=== PATIENT | male | born 1995 | race Caucasian/White ===

== ENCOUNTER 2023-04-23 18:03 | Inpatient (IN) | payer SELFPAY ==
--- OUTSIDE RECORDS SUMMARY | 2023-04-23 18:06 | XMS REPORT | Continuity of Care Document ---
:1995 Author Organization [facility] t Address [address] [place] [address] [place] [id number] Care Team Providers Name Role Phone PCP, PATIENT DOES NOT HAVE A Primary Care Physician Unavaila ble Lab, Adc Fam Pob I Attending Clinician Unavailable Lakeshia Briscoe Attending Clinician LAKESHIA MONSIVAIS Attending Clinician Unavailable Milly Mayes Attending Clinician Tesfaye Brar Attending Clinician TESFAYE VALENCIA Attending Clinician Unavailable Rocio Haley RN Attending Clinician Unavailable UNKNOWN, ATTENDING Attending Clinician Unavailable Payers Payer Name Policy Type Policy Number Effective Date Expiration Date S isela [facility] - [id number] 2020 00:00:00 OUT OF STATE Problems This patient has no known problems. Allergies, Adverse Reactions, Alerts Allergy Allergy Status Severity Reaction(s) Onset Inactive Treating Comm ents Source Name Type Date Date Clinician NO KNOWN Drug Active Univers ALLERGIE Class ity of [facility] Social History Social Habit Start Date Stop Date Quantity Comments Source Exposure to Yes [facility] SARS-CoV-2 (event) Medica l Branch Sex Assigned At [birth year] [facility] 00:00:00 00:00:00 [facility] Smoking Status Start Date Stop Date Source Unknown if ever smoked [facility] Medications This patient has no known medications. Procedures This patient has no known procedures. Encounters Start End Encounter Admission Attending Care Care Encounter Source Date/Time Date/Time Type Type Clinicians Facility Department ID 2021-04-08 2021-04-08 Laboratory Lab, Adc Fam Pob I [facility] 1.2. [id number] Univers 13:05:55 13:25:55 Only Lakeshia Monsivais [id number] ity of [place] [id number] Jack as Professio [id number] [address] One 2021-04-08 2021-04-08 Outpatient R LOI [facility] [id number] Univers 13:00:00 13:00:00 LAKESHIA banuelosy o f [facility] 2020-12-04 2020-12-04 Laboratory Lab, [facility] 1[facility]. [id number] Univers 10:42:43 11:02:43 Only Milly Matt [id number] ity of [place] [id number] Jack as Professio [id number] [address] One 2020-12-04 2020-12-04 Outpatient R [facility] [id number] Univers 10:40:00 10:40:00 ity [facility] 2020-08-23 2020-08-23 Laboratory Lab, [facility] Fam [facility] 1.2. [id number] Univers 14:23:59 14:43:59 Only Tesfaye Valencia [facility] [id number] ity of [place] [id number] Jack as Professio [phone] [address] Office [facility] One 2020-08-23 2020-08-23 [facility] [id number] Univers 14:20:00 14:20:00 TESFAYE banuelosy o f [facility] 2020-07-15 2020-07-15 Letter Rocio Haley [id number] Univers 00:00:00 00:00:00 (Out) STACI [id number] it y of [facility] [id number] Jakc as [id number] [address] 2020-07-13 2020-07-13 Outpatient R [facility], [facility] [id number] Univers 11:45:00 11:45:00 ATTENDING ity of [facility] Branch 2020-07-13 2020-07-13 Outpatient R UNKNOWN, [facility] [id number] Univers 11:30:00 11:30:00 ATTENDING y [facility] Results This patient has no known results.
[2023-04-23] MEDS ORDERED: MORPHINE 4 MG/ML SYR ONE (18:39)
[2023-04-23 18:40] LABS: Absolute Lymphocytes (CBC) 1.1 K/uL (0.7-4.9); Lymphocytes % 9.4 % (15.3-44.8); MPV 8.2 fL (7.6-11.3); Platelets 274 thou/uL (152-406); RBC Red Blood Cell Count 4.73 M/uL (4.33-5.43)
[2023-04-23] MEDS ORDERED: ONDANSETRON 4 MG/2 ML VIAL ONE (18:40)
[2023-04-23] MEDS ORDERED: NA CHLORIDE 0.9% 2,000 ML ONE (18:40)
[2023-04-23] MEDS ORDERED: FAMOTIDINE 20 MG/2 ML VIAL IV ONE (18:40)
[2023-04-23] MEDS ORDERED: METRONIDAZOLE 500mg IVPB 500 MG/100 ML BAG IV ONE (18:41)
[2023-04-23] MEDS ORDERED: CIPROFLOXACIN 400mg IV 400 MG/200 ML BAG IV ONE (18:41)
[2023-04-23 19:00] LABS: Albumin 3.3 g/dL (3.4-5.0); Bilirubin Total 0.8 mg/dL (0.2-1.0); Protein, Total 7.3 g/dL (6.4-8.2)
--- NOTE | 2023-04-23 19:22 | RAD REPORT ---
EXAM DESCRIPTION: CT - Abdomen Pelvis Wo Contrast - 04/23/2023 7:11 pm CLINICAL HISTORY: Abdominal pain COMPARISON: None TECHNIQUE: Computed axial tomography of the abdomen and pelvis was obtained. IV and oral contrast we re not requested. All CT scans are performed using dose optimization technique as appropriate and may include automated exposure control or mA/KV adjustment according to patient size. FINDINGS: The evaluation of solid organs, vessels and bowel is limited secondary to the lack of con trast administration. The liver, spleen, pancreas, adrenals and kidneys appear grossly normal. No evidence diverticulitis. The appendix is retrocecal. It is borderline enlarged. The appendix extends superiorly from the cecum abutting the inferior aspect of the right lobe of the liver. Significant periappendiceal stranding i s not noted. No abscess. No free air IMPRESSION: Borderline enlargement of the appendix is equivocal for an early appendicitis
--- NOTE | 2023-04-23 19:36 | EDPHYS ---
Physician Documentation [facility] Name: Alex Ta II Age: 27 yrs Sex: Male : 1995 Arrival Date: 04/23/2023 Time: 18:03 Bed 6 Private MD: ED Physician Grzegorz Gonzalez HPI: 04/23 19:30 This 27 yrs old Male presents to ER via Ambulatory with complaints of leonor Abdominal Pain, Nausea, Diarrhea. 19:30 The patient presents to the emergency department with nausea, diarrhea, abdominal pain, leonor of the left lower quadrant. Onset: The symptoms/episode began/occurred 3 day(s) ago. Possible causes: unknown. The symptoms are aggravated by nothing. The symptoms are alleviated by nothing. Associated signs and symptoms: The patient has no apparent associated signs or symptoms. Severity of symptoms: At their worst the symptoms were mild moderate in the emergency department the symptoms are unchanged. The patient has not experienced similar symptoms in the past. Historical: - Allergies: 18:18 No Known Allergies; hb - Home Meds: 18:18 Ambien Oral [Active]; hb - PMHx: 18:18 None; hb - PSHx: 18:18 None; hb - Immunization history:: Adult Immunizations up to date. - Social history:: Smoking status: Patient denies any tobacco usage or history of. ROS: 19:31 Constitutional: Negative for fever, chills, and weight loss, Eyes: Negative for injury, leonor pain, redness, and discharge, ENT: Negative for injury, pain, and discharge, Neck: Negative for injury, pain, and swelling, Cardiovascular: Negative for chest pain, palpitations, and edema, Respiratory: Negative for shortness of breath, cough, wheezing, and pleuritic chest pain, Back: Negative for injury and pain, : Negative for injury, bleeding, discharge, and swelling, MS/Extremity: Negative for injury and deformity, Skin: Negative for injury, rash, and discoloration, Neuro: Negative for headache, weakness, numbness, tingling, and seizure, Psych: Negative for depression, anxiety, suicide ideation, homicidal ideation, and hallucinations, Allergy/Immunology: Negative for hives, rash, and allergies, Endocrine: Negative for neck swelling, polydipsia, polyuria, polyphagia, and marked weight changes, Hematologic/Lymphatic: Negative for swollen nodes, abnormal bleeding, and unusual bruising. 19:31 Abdomen/GI: Positive for abdominal pain, nausea, diarrhea, of the left lower quadrant. Exam: 19:31 Constitutional: This is a well developed, well nourished patient who is awake, alert, leonor and in no acute distress. Head/Face: Normocephalic, atraumatic. Eyes: Pupils equal round and reactive to light, extra-ocular motions intact. Lids and lashes normal. Conjunctiva and sclera are non-icteric and not injected. Cornea within normal limits. Periorbital areas with no swelling, redness, or edema. ENT: Nares patent. No nasal discharge, no septal abnormalities noted. Tympanic membranes are normal and external auditory canals are clear. Oropharynx with no redness, swelling, or masses, exudates, or evidence of obstruction, uvula midline. Mucous membranes moist. Neck: Trachea midline, no thyromegaly or masses palpated, and no cervical lymphadenopathy. Supple, full range of motion without nuchal rigidity, or vertebral point tenderness. No Meningismus. Chest/axilla: Normal chest wall appearance and motion. Nontender with no deformity. No lesions are appreciated. Cardiovascular: Regular rate and rhythm with a normal S1 and S2. No gallops, murmurs, or rubs. Normal PMI, no JVD. No pulse deficits. Respiratory: Lungs have equal breath sounds bilaterally, clear to auscultation and percussion. No rales, rhonchi or wheezes noted. No increased work of breathing, no retractions or nasal flaring. Back: No spinal tenderness. No costovertebral tenderness. Full range of motion. Male : Normal genitalia with no discharge or lesions. Skin: Warm, dry with normal turgor. Normal color with no rashes, no lesions, and no evidence of cellulitis. MS/ Extremity: Pulses equal, no cyanosis. Neurovascular intact. Full, normal range of motion. Neuro: Awake and alert, GCS 15, oriented to person, place, time, and situation. Cranial nerves II-XII grossly intact. Motor strength 5/5 in all extremities. Sensory grossly intact. Cerebellar exam normal. Normal gait. Psych: Awake, alert, with orientation to person, place and time. Behavior, mood, and affect are within normal limits. 19:31 Abdomen/GI: Inspection: bruising, Bowel sounds: normal, Palpation: abdomen is soft and non-tender, Liver: no appreciated palpable abnormalities, Hernia: not appreciated. 20:11 ECG was reviewed by the Attending Physician. [facility] Vital Signs: 18:17 BP 139 / 66; Pulse 68; Resp 16; Temp 98.9(O); Pulse Ox 100% on R/A; Weight 86.18 kg; hb Height 5 ft. 6 in. ; Pain 6/10; 19:43 BP 131 / 67; Pulse 78; Resp 18; Pulse Ox 98% on R/A; mb9 18:17 Body Mass Index 30.67 (86.18 kg, 167.64 cm) hb 18:17 Pain Scale: Adult hb MDM: 18:18 Patient medically screened. [facility] 19:39 Differential diagnosis: Nonspecific abd pain, pancreatitis, appendicitis, leonor diverticulitis, viral gastroenteritis, gastroenteritis, bowel obstruction, diverticulitis, gastroesophageal reflux disease, non-specific abd pain, Peptic Ulcer Disease, Pyelonephritis, Ureterolithiasis, urinary tract infection. Data reviewed: vital signs, nurses notes, lab test result(s), EKG, radiologic studies, CT scan, plain films. Consideration of Admission/Observation Patient was admitted/placed on observation. Escalation of care including admission/observation considered. Management of patient was discussed with the following: Hospitalist: DR VEGA. I considered the following discharge prescriptions or medication management in the emergency department Medications were administered in the Emergency Department. See MAR. Independent interpretation of the following test(s) in the Emergency Department EKG: See my EKG interpretation above. Test considered but Not performed: MRI: NO RENAL MRI. Historians other than the Patient: PT ONLY, WELL INFORMED. Care significantly affected by the following chronic conditions: NONE. 04/23 18:21 Order name: CBC with Diff; Complete Time: 19:24 [facility] 04/23 18:21 Order name: CMP [facility] 04/23 18:21 Order name: Lipase [facility] 04/23 18:21 Order name: Urinalysis w/ reflexes [facility] 04/23 19:38 Order name: Flu [facility] 04/23 19:38 Order name: SARS RAPID [facility] 04/23 19:38 Order name: Strep [facility] 04/23 19:51 Order name: Uric Acid [facility] 04/23 19:51 Order name: Phosphorus [facility] 04/23 19:53 Order name: Basic Metabolic Panel [facility] 04/23 19:53 Order name: Basic Metabolic Panel EDMS 04/23 19:53 Order name: Basic Metabolic Panel EDMS 04/23 19:53 Order name: Basic Metabolic Panel EDMS 04/23 19:53 Order name: CBC with Automated Diff EDMS 04/23 19:53 Order name: CBC with Automated Diff EDMS 04/23 19:53 Order name: CBC with Automated Diff EDMS 04/23 19:53 Order name: CBC with Automated Diff EDMS 04/23 19:53 Order name: Magnesium EDMS 04/23 19:53 Order name: Magnesium EDMS 04/23 19:53 Order name: Magnesium EDMS 04/23 19:53 Order name: Magnesium EDMS 04/23 19:13 Order name: Abdomen ; Complete Time: 19:24 EDNM 04/23 19:32 Order name: US Rp Exam Complete [facility] 04/23 19:41 Order name: Chest Single View XRAY [facility] 04/23 19:41 Order name: EKG; Complete Time: 19:42 [facility] 04/23 19:48 Order name: CONS Physician Consult [facility] 04/23 19:53 Order name: Renal EDNM 04/23 18:21 Order name: IV Saline Lock; Complete Time: 18:22 [facility] 04/23 18:21 Order name: Labs collected and sent; Complete Time: 18:22 [facility] 04/23 19:41 Order name: EKG - Nurse/Tech; Complete Time: 19:57 [facility] EC:11 Rate is 62 beats/min. Rhythm is regular. QRS Christine is Normal. OK interval is normal. QRS leonor interval is normal. QT interval is normal. No Q waves. T waves are Normal. No ST changes noted. Clinical impression: NSR w/ Non-specific ST/T Changes and No evidence of ischemia. Interpreted by me. Reviewed by me. Administered Medications: 18:25 Drug: Famotidine IVP 20 mg Route: IVP; Site: right antecubital; mb9 19:42 Follow up: Response: No adverse reaction mb9 18:35 Drug: metroNIDAZOLE IVPB 500 mg Volume: 100 ml; Route: IVPB; Rate: 200 ml/hr; Infused mb9 Over: 30 mins; Site: right antecubital; 19:42 Follow up: Response: No adverse reaction; IV Status: Completed infusion mb9 18:35 Drug: NS 0.9% IV 1000 ml Route: IV; Rate: 1 bolus; Site: right antecubital; mb9 18:38 Drug: NS 0.9% IV 1000 ml Route: IV; Rate: 1 bolus; Site: right antecubital; mb9 19:41 Follow up: Response: No adverse reaction; IV Status: Completed infusion mb9 18:40 Drug: Ondansetron IVP 4 mg Route: IVP; Site: right antecubital; mb9 19:42 Follow up: Response: No adverse reaction mb9 18:45 Not Given (Patient Refused): morphine IVP or IV 4 mg IVP once over 4 mins mb9 19:41 Drug: Ciprofloxacin IVPB 400 mg Volume: 200 ml; Route: IVPB; Infused Over: 60 mins; mb9 Site: right antecubital; 19:41 Drug: NS 0.9% IV 1000 ml Route: IV; Rate: 125 ml/hr; Site: right antecubital; mb9 Disposition Summary: 04/23/23 19:35 Hospitalization Ordered Hospitalization Status: Inpatient Admission leonor Provider: Nani Soliman cha Condition: Stable leonor Problem: new leonor Symptoms: have improved leonor Bed/Room Type: Standard [facility] Location: Telemetry/MedSurg (Inpatient)(04/24/23 06:00) Room Assignment: 225(04/24/23 06:00) Diagnosis - Dehydration leonor - Acute kidney failure, unspecified leonor - Elevated white blood cell count - 12 K leonor - Diarrhea, unspecified leonor Forms: - Medication Reconciliation Form leonor - SBAR form leonor - Leadership Thank You Letter leonor Signatures: Dispatcher [employer] EDNM Macie Nowak RN RN mw Anderson, Corey, MD MD cha Baxter, Heather, RN RN Marcela Grace RN RN mb9 Corrections: (The following items were deleted from the chart) 19:13 18:22 Abdomen Pelvis W Con+CT.RAD.BRZ ordered. EDNM EDMS 19:43 19:35 Telemetry/MedSurg (Inpatient) [facility] 19:43 19:35 leonor 19:51 19:33 PHOSPHORUS+C.LAB.BRZ ordered. EDMS EDMS 19:51 19:33 URIC ACID+C.LAB.BRZ ordered. EDNM EDMS 04/24 06:00 08/24 19:43 [facility] ER HOLD [facility] 04/24 06:00 04/23 19:43 ERHOLD- mw mw
--- NOTE | 2023-04-23 19:36 | ER ---
Nurse's Notes [facility] Name: Alex Ta II Age: 27 yrs Sex: Male : 1995 Arrival Date: 04/23/2023 Time: 18:03 Bed 6 Private MD: Diagnosis: Dehydration;Acute kidney failure, unspecified;Elevated white blood cell count-12 K;Diarrhea, unspecified Presentation: 04/23 18:17 Chief complaint: Left sided abdominal pain and nausea x 2 days. Coronavirus screen: At this time, the client does not indicate any symptoms associated with coronavirus-19. Ebola Screen: No symptoms or risks identified at this time. Initial Sepsis Screen: Does the patient meet any 2 criteria? No. Patient's initial sepsis screen is negative. Does the patient have a suspected source of infection? No. Patient's initial sepsis screen is negative. Risk Assessment: Do you want to hurt yourself or someone else? Patient reports no desire to harm self or others. Onset of symptoms was April 22, 2023. 18:17 Method Of Arrival: Ambulatory hb 18:17 Acuity: AYAH 3 hb Historical: - Allergies: 18:18 No Known Allergies; hb - Home Meds: 18:18 Ambien Oral [Active]; hb - PMHx: 18:18 None; hb - PSHx: 18:18 None; hb - Immunization history:: Adult Immunizations up to date. - Social history:: Smoking status: Patient denies any tobacco usage or history of. Screenin:49 [facility] ED Fall Risk Assessment (Adult) History of falling in the last 3 months, mb9 including since admission No falls in past 3 months (0 pts) Confusion or Disorientation No (0 pts) Intoxicated or Sedated No (0 pts) Impaired Gait No (0 pts) Mobility Assist Device Used No (0 pt) Altered Elimination No (0 pt) Score/Fall Risk Level 0 - 2 = Low Risk Oriented to surroundings, Maintained a safe environment, Educated pt \T\ family on fall prevention, incl call for assistance when getting out of bed. Abuse screen: Denies threats or abuse. Nutritional screening: No deficits noted. Tuberculosis screening: No symptoms or risk factors identified. Assessment: 18:48 General: Appears uncomfortable, Behavior is calm, cooperative. Pain: Complains of pain mb9 in abdomen Pain radiates to LLQ Pain currently is 7 out of 10 on a pain scale. Quality of pain is described as throbbing, Pain began suddenly. Neuro: [place] Agitation-Sedation Scale (RASS): 0 - Alert and Calm Level of Consciousness is awake, alert, obeys commands, Oriented to person, place, time, situation, Appropriate for age. Cardiovascular: Patient's skin is warm and dry. Respiratory: Airway is patent Respiratory effort is even, unlabored, Respiratory pattern is regular, symmetrical. GI: Abdomen is round non-distended, Bowel sounds present X 4 quads. Abd is soft Abdomen is tender to palpation in left upper quadrant and left lower quadrant Reports diarrhea, nausea. Derm: Skin is pink, warm \T\ dry. Musculoskeletal: Range of motion: intact in all extremities. 04/24 07:12 Reassessment: attempt to call report, no answer [phone]. iw 07:30 Reassessment: Patient is alert, oriented x 3, equal unlabored respirations, skin rs5 warm/dry/pink. Vital Signs: 04/23 18:17 BP 139 / 66; Pulse 68; Resp 16; Temp 98.9(O); Pulse Ox 100% on R/A; Weight 86.18 kg; hb Height 5 ft. 6 in. ; Pain 6/10; 19:43 BP 131 / 67; Pulse 78; Resp 18; Pulse Ox 98% on R/A; mb9 18:17 Body Mass Index 30.67 (86.18 kg, 167.64 cm) hb 18:17 Pain Scale: Adult hb ED Course: 18:08 Patient arrived in ED. mr 18:18 Triage completed. hb 18:18 Grzegorz Gonzalez MD is Attending Physician. leonor 18:18 Arm band placed on. hb 18:22 Inserted saline lock: 22 gauge in right antecubital area, using aseptic technique. kc6 Blood collected. 18:43 Marcela Grace, LUNA is Primary Nurse. mb9 18:49 Placed in gown. Bed in low position. Call light in reach. Side rails up X 1. Client mb9 placed on continuous cardiac and pulse oximetry monitoring. NIBP monitoring applied. alarm security or surveillance monitor on. 18:49 No provider procedures requiring assistance completed. mb9 19:13 Abdomen In Process Unspecified. EDMS 19:33 Nani Soliman MD is Hospitalizing Provider. leonor 19:57 SARS RAPID Sent. mb9 19:57 Flu Sent. mb9 20:30 Chest Single View XRAY In Process Unspecified. EDMS 20:47 US Rp Exam Complete In Process Unspecified. EDMS 04/24 00:42 Patient admitted, IV remains in place. as6 Administered Medications: 04/23 18:25 Drug: Famotidine IVP 20 mg Route: IVP; Site: right antecubital; mb9 19:42 Follow up: Response: No adverse reaction mb9 18:35 Drug: metroNIDAZOLE IVPB 500 mg Volume: 100 ml; Route: IVPB; Rate: 200 ml/hr; Infused mb9 Over: 30 mins; Site: right antecubital; 19:42 Follow up: Response: No adverse reaction; IV Status: Completed infusion mb9 18:35 Drug: NS 0.9% IV 1000 ml Route: IV; Rate: 1 bolus; Site: right antecubital; mb9 18:38 Drug: NS 0.9% IV 1000 ml Route: IV; Rate: 1 bolus; Site: right antecubital; mb9 19:41 Follow up: Response: No adverse reaction; IV Status: Completed infusion mb9 18:40 Drug: Ondansetron IVP 4 mg Route: IVP; Site: right antecubital; mb9 19:42 Follow up: Response: No adverse reaction mb9 18:45 Not Given (Patient Refused): morphine IVP or IV 4 mg IVP once over 4 mins mb9 19:41 Drug: Ciprofloxacin IVPB 400 mg Volume: 200 ml; Route: IVPB; Infused Over: 60 mins; mb9 Site: right antecubital; 19:41 Drug: NS 0.9% IV 1000 ml Route: IV; Rate: 125 ml/hr; Site: right antecubital; mb9 Medication: 18:49 VIS not applicable for this client. mb9 Outcome: 19:35 Decision to Hospitalize by Provider. [facility] 04/24 00:42 Admitted to ER Hold. Please see [facility] for further documentation. as6 Condition: good Instructed on the need for admit. 07:31 Admitted to Med/surg accompanied by nurse, via wheelchair, with chart, Report called to rsMakayla Cruz RN 07:31 Patient left the ED. rs5 Signatures: Dispatcher [employer] Grzegorz Vines MD MD cha Rivera, Marcela mr Cedric, Shanae, RN RN iw Anais Giron, RN RN hb Graeme Wu, RN RN as6 Janet Alejandre, RN RN kc6 Lesly, Marcela Baptiste, RN RN mb9 Lisa, Gorge, RN RN rs5
--- NOTE | 2023-04-23 19:42 | P.HP ---
Certification for Inpatient Patient admitted to: Inpatient With expected LOS: <2 Midnights Patient will require the following post-hospital care: None Practitioner: I am a practitioner with admitting privileges, knowledge of patient current condition, hospital course, and medical plan of care. Services: Services provided to patient in accordance with Admission requirements found in Title 42 Section 412.3 of the Code of Federal Regulations <Darline Castelan - Last Filed: 04/24/23 04:46> Patient History Date of Service: 04/24/23 Reason for admission: Adominal pain History of Present Illness: 27-year-old male with no significant past medical history presents to the with nausea, diarrhea and abdominal pain. He reports abdominal pain is left lower quadrant is worse with loose stools. He reports taking laxative due to thinking he was constipated. He reports 3-4 loose stools today. He denies fever vomiting, diaphoresis, rectal bleeding, dizziness. Plan to admit for abdominal pain, appendicitis, dehydration, acute kidney failure, elevated WBCs, diarrhea ER lab evaluation CBC is 12.0, early left shift 80.3, acute kidney injury, BUN 23 creatinine 3.68, hypocalcemia 8.4, UA 1+ blood. CT of the abdomen pelvis IMPRESSION: Borderline enlargement of the appendix is equivocal for an early appendicitis Renal ultrasound IMPRESSION: Increased renal echotexture consistent with parenchymal disease Kidneys appear mildly enlarge Chest x-ray FINDINGS: The lungs appear clear of acute infiltrate. The heart is normal size IMPRESSION: No acute abnormalities displayed - Past Medical/Surgical History Past Medical History: Patient denies medical history Past Surgical History: Patient denies surgical history - Social History Smoking Status: Never smoker Alcohol use: No CD- Drugs: No Caffeine use: No <Darline Castelan - Last Filed: 04/24/23 04:46> Date of Service: 04/27/23 <Nani Soliman - Last Filed: 04/27/23 00:58> Allergies No Known Allergies Allergy (Unverified 04/23/23 21:36) Review of Systems 10-point ROS is otherwise unremarkable <Darline Castelan - Last Filed: 04/24/23 04:46> 10-point ROS is otherwise unremarkable <Nani Soliman - Last Filed: 04/27/23 00:58> Physical Examination - Physical Exam General: Alert, In no apparent distress, Oriented x3 HEENT: Atraumatic, Normocephalic, PERRLA Neck: Supple, 2+ carotid pulse no bruit Respiratory: Clear to auscultation bilaterally, Normal air movement Cardiovascular: No edema, Normal pulses, Regular rate/rhythm Capillary refill: <2 Seconds Gastrointestinal: Other (LLQ tenderness, periumbicical, no rebound tenderness), Hyperactive Musculoskeletal: No clubbing, No swelling Neurological: Normal gait, Normal speech, Normal strength at 5/5 x4 extr - Studies Laboratory Data (last 24 hrs) 04/23/23 04/23/23 18:24 18:24 WBC 12.00 H Hgb 14.8 Hct 43.0 Plt Count 274 Sodium 137 Potassium 4.0 BUN 23 H Creatinine 3.68 H Glucose 83 Total Bilirubin 0.8 AST 20 ALT 18 Alkaline Phosphatase 67 Lipase 22 <Darline Castelan - Last Filed: 04/24/23 04:46> - Vital Signs Temperature: 98 F ( vital signs have been reviewed) - Physical Exam Neurological: Cranial nerves 3-12 intact <Nani Soliman - Last Filed: 04/27/23 00:58> Assessment and Plan - Plan Assessment and plan Acute renal failure Dehydration Diarrhea Leukocytosis Hypocalcemia borderline enlarge of appendix DVT prophylaxis Assessment and plan Acute renal failure Nephrology consult notified in the ED, IV fluids, Trend electrolytes replace as needed BUN 23 creatinine [address].68, CT of the abdomen pelvis IMPRESSION: Borderline enlargement of the appendix is equivocal for an early appendicitis Renal ultrasound IMPRESSION: Increased renal echotexture consistent with parenchymal disease Kidneys appear mildly enlarged Chest x-ray no acute abnormality UA 1+ blood. Dehydration Diarrhea IV Cipro and Flagyl IV fluids, Leukocytosis Cipro, Flagyl, IV fluids, borderline enlarge of appendix Dr Whitfield notified of abn CT, recommend CT w PO contrast in am CBC trend WBCs in the a.m. Hypocalcemia Trend electrolytes replace as needed hypocalcemia 8.4 DVT prophylaxis heparin Diet renal Full code Discharge Plan: Home Plan to discharge in: 48 Hours - Advance Directives Does patient have a Living Will: No Does patient have a Durable POA for Healthcare: No - Code Status/Comfort Care Code Status: Full Code Physician Review: Patient Assessed, Agree with Above Assessment and Plan Critical Care: No Time Spent Managing Pts Care (In Minutes): 50 <Darline Castelan - Last Filed: 04/24/23 04:46>
[2023-04-23] MEDS ORDERED: ACETAMINOPHEN 500 MG TAB PO PRN (19:51)
[2023-04-23] MEDS ORDERED: ZOLPIDEM TARTRATE 5 MG TABLET PO PRN (19:51)
[2023-04-23 19:58] LABS: Phosphorus 4.1 mg/dL (2.5-4.9); Uric Acid 7.6 mg/dL (3.5-7.2)
[2023-04-23 19:59] LABS: Urine Bacteria <20 /HPF (<20); Urine Mucus Slight /HPF (None Seen); Urine RBC <5 /HPF (None Seen)
[2023-04-23] MEDS: NA CHLORIDE 0.9% 1,000 ML IV SCH (20:00)
[2023-04-23 20:04] LABS: Specific Gravity 1.005 (1.005-1.030); Urine Bilirubin NEGATIVE (Negative); Urine Blood 1+ (Negative); Urine Clarity Extremely Turbid (Clear); Urine Color Colorless (Yellow); Urine Glucose NEGATIVE (Negative); Urine Protein TRACE (Negative); Urine Urobilinogen Normal (Normal); Urine pH 5.5 (5.0-7.0)
[2023-04-23 20:09] LABS: SARS-CoV-2 Antigen Rapid Res Negative (Negative)
--- NOTE | 2023-04-23 20:42 | RAD REPORT ---
EXAM DESCRIPTION: Sushant Single View04/23/2023 8:29 pm CLINICAL HISTORY: cough COMPARISON: none FINDINGS: The lungs appear clear of acute infiltrate. The heart is normal size IMPRESSION: No acute abnormalities displayed
--- NOTE | 2023-04-23 21:09 | RAD REPORT ---
EXAM DESCRIPTION: US - Renal Ultrasound-Complete - 04/23/2023 8:45 pm CLINICAL HISTORY: Abdominal pain/acute renal failure COMPARISON: None. FINDINGS: The right kidney measures 12 cm with an increased echotexture. The left kidney measures 13 cm with an increased echotexture. Hydronephrosis is not seen. No gross abnormality of bladder is noted IMPRESSION: Increased renal echotexture consistent with parenchymal disease Kidneys appear mildly enlarged
[2023-04-23] MEDS ORDERED: NA CHLORIDE 0.9% 1,000 ML ONE (22:17)
[2023-04-24] MEDS ORDERED: TRAMADOL HCL 50 MG TAB PO PRN (00:11)
[2023-04-24] MEDS ORDERED: MORPHINE 4 MG/ML SYR ONE ×2 (00:41→05:37)
[2023-04-24] MEDS ORDERED: HEPARIN 5000 UNIT/ML 1 ML VIAL ONE (00:41)
[2023-04-24] MEDS ORDERED: ONDANSETRON 4 MG/2 ML VIAL ONE (00:42)
[2023-04-24] MEDS ORDERED: ZOLPIDEM TARTRATE 5 MG TABLET ONE (00:42)
[2023-04-24] MEDS ORDERED: METRONIDAZOLE 500mg IVPB 500 MG/100 ML BAG IV ONE (00:42)
[2023-04-24] MEDS: METRONIDAZOLE 500mg IVPB 500 MG/100 ML BAG IV SCH ×3 (00:44→17:31)
[2023-04-24] MEDS: HEPARIN 5000 UNIT/ML 1 ML VIAL SQ SCH ×3 (00:44→17:31)
[2023-04-24] MEDS: ZOLPIDEM TARTRATE 10 MG TABLET PO PRN (00:44)
[2023-04-24] MEDS: MORPHINE 4 MG/ML SYR IV PRN ×5 (00:44→22:49)
[2023-04-24] MEDS: ONDANSETRON 4 MG/2 ML VIAL IV PRN (00:45)
[2023-04-24] MEDS ORDERED: TRAMADOL HCL 50 MG TAB ONE (04:33)
[2023-04-24 04:54] LABS: Absolute Lymphocytes (CBC) 1.4 K/uL (0.7-4.9); Hematocrit 41.3 % (39.6-49.0); Lymphocytes % 15.3 % (15.3-44.8); MCV 91.8 fL (80-100); MPV 8.2 fL (7.6-11.3); Platelets 255 thou/uL (152-406)
[2023-04-24 05:12] LABS: Magnesium 2.2 mg/dL (1.6-2.4)
[2023-04-24] MEDS: NA CHLORIDE 0.9% 1,000 ML IV SCH ×2 (09:20→17:30)
[2023-04-24] MEDS ORDERED: NA CHLORIDE 0.9% 500 ML IV ONE (09:30)
--- NOTE | 2023-04-24 10:29 | RAD REPORT ---
EXAM DESCRIPTION: CT - Abdomen Pelvis Wo Contrast - 04/24/2023 10:05 am CLINICAL HISTORY: Abdominal pain. enlarged appendix COMPARISON: Abdomen Pelvis Wo Contrast dated 04/23/2023 TECHNIQUE: CT imaging of the abdomen and pelvis was performed without contrast. Solid organ and vasc ular assessment is limited due to lack of IV contrast. All CT scans are performed using dose optimization technique as appropriate and may include automated exposure control or mA/KV adjustment according to patient size. FINDINGS: The lower lung beltran are clear. The liver, spleen, pancreas, adrenal glands and kidneys are within normal limits for a limited non-co ntrast examination. No bowel obstruction, free air, free fluid or abscess. The appendix is mildly prominent. There is ai r within the lumen of the appendix. Contrast does not fill the appendix however limited contrast is s een in the cecum. Overall, appendicitis is felt to be doubtful. Mild sigmoid diverticulosis is presen t. The osseous structures are within normal limits. IMPRESSION: Acute appendicitis is felt to be less likely. The appendix is mildly prominent however t here is air within the lumen which would mitigate against acute inflammation. A limited non-contrast examination was performed as detailed.
[2023-04-24] MEDS ORDERED: NA CHLORIDE 0.9% 1,000 ML IV ONE (10:31)
--- NOTE | 2023-04-24 13:55 | P.CNS ---
Date of Consult: 04/24/23 Reason for Consult: Renal failure Requesting Physician: Nani Soliman Chief Complaint: Adominal pain History of Present Illness: 27M with no significant past medical history who p/w nausea, diarrhea and abdominal pain. CT of the abdomen pelvis showed borderline enlargement of the appendix is equivocal for an early appendicitis. He is referred to Nephrology for renal failure. GFR 22 on adm, at 20 today. He denies prior hx of kidney dse. He received IV fluid. KUB unremarkable on CT or ultrasound. Allergies No Known Allergies Allergy (Unverified 04/23/23 21:36) Home Medications: Zolpidem Tartrate [Ambien] 10 mg PO BEDTIME PRN PRN 04/24/23 - Social History Alcohol use: No CD- Drugs: No Caffeine use: No Place of Residence: Home Review of Systems General: Weakness Eyes: Unremarkable ENT: Unremarkable Respiratory: Unremarkable Cardiovascular: Unremarkable Gastrointestinal: Nausea, Abdominal Pain, Diarrhea Genitourinary: Unremarkable Musculoskeletal: Unremarkable Integumentary: Unremarkable Neurological: Unremarkable Lymphatics: Unremarkable Physical Examination Temp Pulse Resp BP Pulse Ox 98.4 F 67 14 139/74 96 04/24/23 08:00 04/24/23 08:00 04/24/23 13:01 04/24/23 08:00 04/24/23 08:00 General: In no apparent distress HEENT: Atraumatic, Normocephalic Neck: Supple Respiratory: Clear to auscultation bilaterally Cardiovascular: No edema, No rubs, No murmurs Gastrointestinal: Hypoactive, Soft and benign, No guarding Musculoskeletal: No clubbing, No warmth Integumentary: No rashes Neurological: Normal speech, Normal tone Laboratory Data (last 24 hrs) 04/23/23 04/23/23 04/23/23 19:29 18:24 18:24 WBC 12.00 H Hgb 14.8 Hct 43.0 Plt Count 274 Sodium 137 Potassium 4.0 BUN 23 H Creatinine 3.68 H Glucose 83 Uric Acid Cancelled 7.6 H Phosphorus Cancelled 4.1 Total Bilirubin 0.8 AST 20 ALT 18 Alkaline Phosphatase 67 Lipase 22 Conclusions/Impression: # DAVE 2/2 prerenal state/ATN vs CKD4 GFR 22 on adm, at 20 today Baseline renal fxn unknown Urine chem non-prerenal Has minimal proteinuria 0.3g KUB unremarkable on imaging CPK wnl, no rhabdo. BNP somewhat elevated. F/u serum iPTH Cont IVF Sigel po fuid intake # Hypocalcemia Ca repletion prn F/u iPTH & 25OHD # Abdominal pain, nausea, diarrhea, leukocytosis ? acute appendicitis Per other services
[2023-04-24 14:11] LABS: Absolute Lymphocytes (CBC) 1.3 K/uL (0.7-4.9); Hematocrit 41.9 % (39.6-49.0); Lymphocytes % 15.6 % (15.3-44.8); MPV 7.9 fL (7.6-11.3); Platelets 247 thou/uL (152-406); RBC Red Blood Cell Count 4.56 M/uL (4.33-5.43)
[2023-04-24 14:28] LABS: Albumin 2.7 g/dL (3.4-5.0); Bilirubin Total 0.5 mg/dL (0.2-1.0); Magnesium 2.1 mg/dL (1.6-2.4); Protein, Total 5.9 g/dL (6.4-8.2)
--- NOTE | 2023-04-24 15:21 | EKG ---
Test Date: 2023-04-23 Test Time: 19:52:09 Drum Maker: MB MEASUREMENT RESULTS: Intervals: Rate: 62 IA: 158 QRSD: 104 QT: 390 QTc: 395 Jolon: P: 84 IA: 158 QRS: 73 T: 56 INTERPRETIVE STATEMENTS: Sinus rhythm with marked sinus arrhythmia Otherwise normal ECG No previous ECG available for comparison Electronically Signed On 04-24-23 15:20:30 CDT by Tor Doshi
[2023-04-24 15:24] LABS: UR PROTEIN 17.2 mg/dL (<11.9); Urine Protein/Creatinine Ratio 0.34 ratio (<0.15)
[2023-04-24 16:15] LABS: Barbiturates NEGATIVE (NEGATIVE); Benzodiazepines NEGATIVE (NEGATIVE); Cocaine NEGATIVE (NEGATIVE); METHAMPHETAM NEGATIVE (NEGATIVE); Methadone NEGATIVE (NEGATIVE); Opiates NEGATIVE (NEGATIVE); Phencyclidine NEGATIVE (NEGATIVE); THC Cannibis NEGATIVE (NEGATIVE)
[2023-04-24] MEDS ORDERED: CIPROFLOXACIN 400mg IV 400 MG/200 ML BAG IV SCH (19:00)
[2023-04-24] MEDS: TRAMADOL HCL 50 MG TAB PO PRN (19:31)
[2023-04-24] MEDS: CIPROFLOXACIN 400mg IV 400 MG/200 ML BAG IV SCH (19:32)
[2023-04-24 21:07] VITALS: O2SAT 96
--- NOTE | 2023-04-24 21:10 | CON ---
Date of Consultation: 04/24/2023 Reason For Service: Abdominal pain. History Of Present Illness: This is a case of a 27-year-old patient, who comes to the hospital with left flank tenderness. The etiology of that is unknown. He denies any trauma, any dysuria, hematuri a, hematochezia, any melena. During the workup in the ER, the patient was found to have elevated cre atinine in 3 with unknown reason for it. A CAT scan was ordered and during the CAT scan that has eddie e equivocal findings and they have an appendix upper limit of normal, and even though he has no pain in that region and no tenderness. Surgical consult was obtained to take a look at the area of the ap pendix and verify. This morning, the CAT scan was done at this time with p.o. contrast, but they shilpa led to show any evidence of acute appendicitis. The patient has no nausea, no vomiting. No dysuria, hematuria, hematochezia, or melena. There is no recent traveling out of the country. [facility] sick [facility]. Allergies: NONE. Medications: Ambien. Medical History: None. Surgeries: None. Social History: He does not smoke. He does not drink alcohol. Review of Systems: See HPI. Physical Examination: General: The patient is awake and alert. HEENT: Pupils are equal and reactive. Anicteric. Neck: Supple. Chest: Clear. Heart: S1, S2. Abdomen: Soft and depressible. No guarding or rebound. No peritoneal signs. Mild left flank tende rness. No Rovsing sign. No psoas signs. Rectal: Deferred. Extremities: Good capillary refill. Laboratory Data: Blood work shows a WBC count of 8.4, hemoglobin of 14, platelets of 247, creatinine comes from 3.6 to 4 to 3.98. Etiology of that is unknown. GFR 20 and chloride is 112. The CAT sca n of the abdomen and pelvis area was done in ER and also a renal ultrasound was done. The initial CA T scan findings show borderline enlargement of appendix is equivocal. No significant periappendiceal stranding seen. The appendix extends superiorly from the cecum into the right side. The appendix i s retrocecal. No evidence of diverticulitis. Since that was done without contrast, another CAT scan was done this morning 8 hours later; acute appendicitis is felt to be less likely. Appendix is mild ly prominent. However, the air within the lumen which will mitigate again acute inflammation. Assessment: This is a 27-year-old patient who found to have renal insufficiency, has findings that t shaw we repeated the CAT scan today to verify. The patient received no antibiotics overnight and the white count came better and the appendix once again failed to show any evidence of appendicitis. We are going to continue the patient on observation. The Renal doctors are working on the etiology of that creatinine. He has no Rovsing signs. No tenderness at this moment. White count is normal. No fever. Obviously, I explained to him there is an option of diagnostic laparoscopy, although we have no specific findings on the appendix, but at the same time, he is small enough to notice that surger y may affect whatever is causing his kidneys to be inflamed. So, he does not want to use that option diagnostic unless we have specifically findings that he believes it will require any henrietta gent surgery. CHRISTOPHER/AJAY Voice ID: [id number] Report ID: [id number]
[2023-04-25] MEDS: METRONIDAZOLE 500mg IVPB 500 MG/100 ML BAG IV SCH ×3 (01:12→16:23)
[2023-04-25] MEDS: TRAMADOL HCL 50 MG TAB PO PRN (01:12)
[2023-04-25] MEDS: HEPARIN 5000 UNIT/ML 1 ML VIAL SQ SCH ×3 (01:13→16:30)
[2023-04-25 04:00] LABS: Absolute Lymphocytes (CBC) 1.4 K/uL (0.7-4.9); Hematocrit 40.1 % (39.6-49.0); Lymphocytes % 15.3 % (15.3-44.8); MCV 90.8 fL (80-100); MPV 7.9 fL (7.6-11.3); Platelets 234 thou/uL (152-406); RBC Red Blood Cell Count 4.41 M/uL (4.33-5.43)
[2023-04-25 04:18] LABS: Magnesium 2.1 mg/dL (1.6-2.4); Potassium 3.8 mEq/L (3.5-5.1)
[2023-04-25 04:42] LABS: Creatine Phosphokinase 278 U/L (39-308); NT PRO-BNP 478 pg/mL (<125)
[2023-04-25] MEDS: MORPHINE 4 MG/ML SYR IV PRN ×3 (08:13→22:28)
[2023-04-25] MEDS: NA CHLORIDE 0.9% 1,000 ML IV SCH (08:13)
--- NOTE | 2023-04-25 14:22 | PN ---
Date of Progress Note: 04/25/2023 Subjective: The patient was admitted with acute kidney injury. The patient denied taking any nonste roidal. The patient's all workup has been negative. The patient has taken some Vicodin. The patien t nonoliguric. The patient denied any rashes. Physical Examination: Vital Signs: Blood pressure of 144/73, pulse of 59, afebrile. Chest: Clear to auscultation. Heart: S1, S2. Systolic murmur. Abdomen: Soft, nontender. EXTREMITIES: No edema. NEURO: No focality. Laboratory Data: Hemoglobin 14.3, platelets 234, eosinophil 300. Sodium 139, potassium 3.8, bicarb 27, BUN 22, creatinine 4, GFR of 20, calcium 7.5, phosphorus 2.1, vitamin D 25, PTH 196. Urinalysis negative for infection. P/C ratio 0.3. Urine sodium of 34. No hematuria. Urine drug screen was ne gative. Serology still pending. Assessment And Plan: 1.Acute kidney injury. According to the patient, had lab 1 year back within normal limit. The na ent admits to taking Vicodin and occasionally steroid for muscle build. The patient nonoliguric. No hyperkalemia or acidosis. a.I am going to go ahead and continue with IV hydration. b.I going to go ahead and send for full serology to evaluate for any autoimmune disease. c.I am going to send arrangement for kidney biopsy Thursday if kidney function continues not to improv e. I had long discussion with the patient regarding that and the patient verbalized understanding an d agreed on that. 2.Hypokalemia, marginal. No need for supplement for the time being. 3.Acidosis, stable. 4.Secondary hyperparathyroidism. Calcium corrected is 8.5. No need for supplement or calcitriol for the time being. 5.Gastroenteritis. Follow up with primary. TAYLOR/AJAY Voice ID: [id number] Report ID: [id number]
[2023-04-25 16:24] LABS: Specific Gravity 1.005 (1.005-1.030); Urine Bacteria <20 /HPF (<20); Urine Bilirubin NEGATIVE (Negative); Urine Blood Trace (Negative); Urine Clarity Turbid (Clear); Urine Color Colorless (Yellow); Urine Glucose NEGATIVE (Negative); Urine Mucus Slight /HPF (None Seen); Urine Protein NEGATIVE (Negative); Urine RBC <5 /HPF (None Seen); Urine Urobilinogen Normal (Normal); Urine pH 5.5 (5.0-7.0)
[2023-04-25] MEDS ORDERED: MORPHINE 4 MG/ML SYR IV ONE (18:15)
[2023-04-25] MEDS ORDERED: SODIUM CHLORIDE 0.9% 10ML INJ IV PRN (21:10)
[2023-04-25] MEDS: CIPROFLOXACIN 400mg IV 400 MG/200 ML BAG IV SCH (21:14)
[2023-04-25] MEDS: ONDANSETRON 4 MG/2 ML VIAL IV PRN (21:14)
[2023-04-25] MEDS: SIMETHICONE 80 MG TAB PO PRN (21:29)
[2023-04-25] MEDS: PANTOPRAZOLE 40 MG INJ IVP SCH (21:29)
[2023-04-25] MEDS: ZOLPIDEM TARTRATE 10 MG TABLET PO PRN (22:27)
[2023-04-26] MEDS: HEPARIN 5000 UNIT/ML 1 ML VIAL SQ SCH ×3 (01:00→17:30)
[2023-04-26] MEDS: METRONIDAZOLE 500mg IVPB 500 MG/100 ML BAG IV SCH ×3 (01:42→17:30)
[2023-04-26] MEDS: NA CHLORIDE 0.9% 1,000 ML IV SCH ×2 (01:43→14:07)
[2023-04-26] MEDS: MORPHINE 4 MG/ML SYR IV PRN (01:50)
[2023-04-26 03:29] LABS: Absolute Lymphocytes (CBC) 1.2 K/uL (0.7-4.9); Hematocrit 40.8 % (39.6-49.0); Lymphocytes % 18.2 % (15.3-44.8); MPV 8.1 fL (7.6-11.3); Platelets 258 thou/uL (152-406); RBC Red Blood Cell Count 4.48 M/uL (4.33-5.43)
[2023-04-26 03:46] LABS: Albumin 2.9 g/dL (3.4-5.0); Magnesium 2.1 mg/dL (1.6-2.4); Phosphorus 4.1 mg/dL (2.5-4.9); Potassium 4.1 mEq/L (3.5-5.1); Uric Acid 7.3 mg/dL (3.5-7.2)
[2023-04-26 05:42] LABS: Rheumatoid Factor NEG (NEG)
[2023-04-26] MEDS: SIMETHICONE 80 MG TAB PO PRN ×3 (07:14→21:02)
[2023-04-26] MEDS: PANTOPRAZOLE 40 MG INJ IVP SCH ×2 (08:59→21:02)
--- NOTE | 2023-04-26 16:48 | PN ---
Date of Progress Note: 04/26/2023 Subjective: The patient was admitted to the hospital with acute kidney injury, unknown etiology, ser ology pending. Yesterday, we started aggressive hydration. Today kidney function slightly better. Physical Examination: Vital Signs: Blood pressure 120/58, pulse of 60. Chest: Clear to auscultation. Heart: S1, S2. Regular. Abdomen: Soft, nontender. Extremities: No edema. Neurologic: Alert. No focality. Laboratory Data: Hemoglobin 14.3. Sodium 141, potassium 4.1, bicarb 29, BUN 22, creatinine 3.5, GFR of 24, calcium 7.9, phosphorus 4.1, magnesium 2.1. BNP 478. Current Medications: The patient on include; 1.Metronidazole. 2.Ciprofloxacin. 3.Ambien. 4.Zofran. 5.Simethicone. 6.IV fluid. Assessment And Plan: 1.Acute kidney injury secondary to possible to prerenal, on the recovery mode. I am going to go ahe ad and increase IV fluid to 100 and I will monitor the patient if kidney function did not improve fur ther by tomorrow. I had long discussion with the patient. We will proceed with a biopsy. If kidney function improves, I do not see the need for the biopsy at that time. 2.Dehydration, heat exhaustion. Continue IV hydration. Increase IV fluid as above. 3.Hypercalcemia, corrected calcium within normal limit. I am going to hold on supplement. 4.Acidosis, resolved. 5.Hypokalemia, resolved. 6.Secondary hyperparathyroidism, stable. No need for any supplement or vitamin D. 7.Gastroenteritis. Continue antibiotic. Continue hydration. JARVIS Voice ID: [id number] Report ID: [id number]
[2023-04-26] MEDS: CIPROFLOXACIN 400mg IV 400 MG/200 ML BAG IV SCH (21:03)
[2023-04-26] MEDS: ZOLPIDEM TARTRATE 10 MG TABLET PO PRN (22:18)
[2023-04-27] MEDS: METRONIDAZOLE 500mg IVPB 500 MG/100 ML BAG IV SCH ×3 (00:12→16:36)
[2023-04-27] MEDS: MORPHINE 4 MG/ML SYR IV PRN (00:13)
[2023-04-27] MEDS: NA CHLORIDE 0.9% 1,000 ML IV SCH ×3 (00:13→20:07)
[2023-04-27] MEDS: HEPARIN 5000 UNIT/ML 1 ML VIAL SQ SCH ×3 (01:00→16:36)
--- NOTE | 2023-04-27 01:03 | P.PN ---
Subjective Date of Service: 04/24/23 Subjective: No new changes, No C/O voiced, Improving Review of Systems 10-point ROS is otherwise unremarkable Physical Examination - Vital Signs Temperature: 98 F ( vital signs have been reviewed) Blood Pressure: 133/73 Pulse: 48 Respirations: 16 Pulse Ox (%): 95 - Physical Exam General: Alert, In no apparent distress, Oriented x3 Respiratory: Clear to auscultation bilaterally, Normal air movement Cardiovascular: Regular rate/rhythm, Normal S1 S2, No murmurs Gastrointestinal: Normal bowel sounds, Soft and benign, Non-distended, No tenderness Musculoskeletal: No clubbing, No swelling, No tenderness Neurological: Sensation intact, Cranial nerves 3-12 intact - Studies Medications List Reviewed: Yes Assessment & Plan - Problems (Diagnosis) (1) Acute kidney injury Current Visit: Yes Status: Acute (2) Dehydration Current Visit: Yes Status: Acute (3) Abdominal pain Current Visit: Yes Status: Acute - Plan Plan: 1. Continue with IV fluids 2. Monitor renal function 3. Spoke with General surgery about abdominal pain and at this time CT imaging does not show any indication for surgical intervention 4. If renal function does not improve and patient may need renal biopsy 5. GI and DVT prophylaxis Discharge Plan: Home Plan to discharge in: Greater than 2 days - Advance Directives Does patient have a Living Will: No Does patient have a Durable POA for Healthcare: No - Code Status/Comfort Care Code Status: Full Code Physician Review: Patient Assessed, Agree with Above Assessment and Plan Critical Care: No Time Spent Managing PTS Care (In Minutes): 35
--- NOTE | 2023-04-27 01:07 | P.PN ---
Date of Service: 04/25/23 Subjective Subjective: Patient's renal function has not improved. Spoke with Nephrology and plan is to possibly get a renal biopsy to try to figure out what is causing patient's chronic kidney disease. It does not appear that patient has acute renal insufficiency at this time. Continue monitoring labs and scheduled for renal biopsy on Thursday morning. patient had abdominal pain once again after he ate something today. Have encouraged him to try to hold off on his diet if he is having pain. Will reassess in the morning. Review of Systems 10-point ROS is otherwise unremarkable Physical Examination - Vital Signs Reviewed - Physical Exam General: Alert, In no apparent distress, Oriented x3 Respiratory: Clear to auscultation bilaterally, Normal air movement Cardiovascular: Regular rate/rhythm, Normal S1 S2, No murmurs Gastrointestinal: Normal bowel sounds, Soft and benign, Non-distended, No tenderness Musculoskeletal: No clubbing, No swelling, No tenderness Neurological: no focal deficits - Studies Medications List Reviewed: Yes Assessment & Plan - Problems (Diagnosis) (1) Acute kidney injury Current Visit: Yes Status: Acute (2) Dehydration Current Visit: Yes Status: Acute (3) Abdominal pain Current Visit: Yes Status: Acute - Plan Continue with plan of care as mentioned below: 1. Continue with IV fluids 2. Continue monitoring renal function 3. Spoke with General surgery about abdominal pain and at this time CT imaging does not show any indication for surgical intervention 4. If renal function does not improve and patient may need renal biopsy 5. GI and DVT prophylaxis Discharge Plan: Home Plan to discharge in: Greater than 2 days - Advance Directives Does patient have a Living Will: No Does patient have a Durable POA for Healthcare: No - Code Status/Comfort Care Code Status: Full Code Physician Review: Patient Assessed, Agree with Above Assessment and Plan Critical Care: No Time Spent Managing PTS Care (In Minutes): 35
--- NOTE | 2023-04-27 01:10 | P.PN ---
Date of Service: 04/26/23 Subjective Subjective: Patient is doing well. Abdominal pain has improved. Renal function has actually improved. Continue with plan of care and scheduled renal biopsy in the morning. Physical Examination - Vital Signs Reviewed - Physical Exam General: Alert, In no apparent distress, Oriented x3 Respiratory: Clear to auscultation bilaterally, Normal air movement Cardiovascular: Regular rate/rhythm, Normal S1 S2, No murmurs Gastrointestinal: Normal bowel sounds, Soft and benign, Non-distended, No tenderness Musculoskeletal: No clubbing, No swelling, No tenderness Neurological: no focal deficits Assessment & Plan - Problems (Diagnosis) (1) Acute kidney injury Current Visit: Yes Status: Acute (2) Dehydration Current Visit: Yes Status: Acute (3) Abdominal pain Current Visit: Yes Status: Acute - Plan Continue with plan of care as mentioned below: 1. Continue with IV fluids 2. Continue monitoring renal function 3. Patient does not require any surgical intervention at this time. 4. Renal biopsy in AM 5. GI and DVT prophylaxis Discharge Plan: Home Plan to discharge in: Greater than 2 days - Advance Directives Does patient have a Living Will: No Does patient have a Durable POA for Healthcare: No - Code Status/Comfort Care Code Status: Full Code Physician Review: Patient Assessed, Agree with Above Assessment and Plan Critical Care: No Time Spent Managing PTS Care (In Minutes): 25
[2023-04-27 06:48] LABS: Hepatitis B Core IgM Nonreactive (Nonreactive); Hepatitis B surface AG Interp. Nonreactive (Nonreactive); Hepatitis C Virus Ab Nonreactive (Nonreactive)
[2023-04-27 07:57] LABS: Albumin 2.8 g/dL (3.4-5.0); Phosphorus 3.1 mg/dL (2.5-4.9); Potassium 4.1 mEq/L (3.5-5.1); Protime INR 1.28
[2023-04-27] MEDS: PANTOPRAZOLE 40 MG INJ IVP SCH ×2 (09:35→20:11)
[2023-04-27] MEDS: SIMETHICONE 80 MG TAB PO PRN ×3 (09:50→21:55)
--- NOTE | 2023-04-27 10:56 | P.PN ---
Subjective Date of Service: 04/27/23 Chief Complaint: elevated creatinine Subjective: Tolerating diet, Ambulating, Improving Review of Systems General: Unremarkable Gastrointestinal: Unremarkable Genitourinary: Unremarkable Neurological: Unremarkable Physical Examination - Vital Signs Temperature: 97.6 F Blood Pressure: 140/69 Pulse: 44 Respirations: 16 Pulse Ox (%): 97 - Physical Exam General: Alert, In no apparent distress, Oriented x3, Cooperative HEENT: Normocephalic, PERRLA Neck: Supple Cardiovascular: Normal pulses Gastrointestinal: Soft and benign, No tenderness, No rebound, No guarding Musculoskeletal: No erythema, No tenderness, No warmth Integumentary: No rashes, No breakdown Neurological: Normal speech - Studies Medications List Reviewed: Yes Assessment And Plan - Plan elevated creatinine unknow origin Pt with no abdominal pain today , non tender, tolerating diet, ambulating We discuss optiond of diagnostic laparoscopy if pain return now or in the future. He understood but he doesnt want to use that option as this time. As outpatient, he should f/u in my office and GI Physician Review: Patient Assessed, Agree with Above Assessment and Plan
--- NOTE | 2023-04-27 11:01 | P.PN ---
Subjective Date of Service: 04/24/23 Chief Complaint: acute kidney injury Subjective: Ambulating, Improving Review of Systems General: Unremarkable Gastrointestinal: Nausea (no), Vomiting (no), Abdominal Pain (on/off LLQ, left flank), Distention (mild) Physical Examination - Vital Signs Temperature: 97.6 F Blood Pressure: 140/69 Pulse: 44 Respirations: 16 Pulse Ox (%): 97 - Physical Exam General: Alert, In no apparent distress, Oriented x3, Cooperative HEENT: Atraumatic Neck: Supple Gastrointestinal: Soft and benign, No rebound, No guarding Musculoskeletal: No erythema, No tenderness, No warmth Integumentary: No rashes, No breakdown, No erythema, No warmth, No cyanosis Neurological: Normal gait, Normal speech - Studies Medications List Reviewed: Yes Assessment And Plan - Plan We discussed with him CT scan results and surgical options although not designed to diagnosed his kidney disease or treated. He want to concentrate in solving his kidney issued first and pain return he will allow diagnostic lap. BAR explained. Physician Review: Patient Assessed, Agree with Above Assessment and Plan
--- NOTE | 2023-04-27 18:26 | P.PN ---
Subjective Date of Service: 04/27/23 Chief Complaint: acute kidney injury No acute events overnight. He reports that he feels well this morning. Plan is for renal biopsy today. He reports taking kratom for "many years," and he is unsure if this could have contributed to his renal failure. He denies any chest pain, palpitations, shortness of breath, dysuria, or change in urine output. Review of Systems 10-point ROS is otherwise unremarkable Physical Examination - Vital Signs Temperature: 98.8 F Blood Pressure: 131/62 Pulse: 53 Respirations: 15 Pulse Ox (%): 97 - Physical Exam General: Alert, In no apparent distress, Oriented x3 HEENT: Atraumatic, Mucous membr. moist/pink, Sclerae nonicteric Neck: JVD not distended Respiratory: Clear to auscultation bilaterally, Normal air movement Cardiovascular: No edema, Regular rate/rhythm, Normal S1 S2, No gallops, No rubs, No murmurs Gastrointestinal: Normal bowel sounds, Soft and benign, Non-distended, No tenderness, No rebound, No guarding Musculoskeletal: No clubbing Integumentary: No rashes Neurological: Normal speech, Normal affect - Studies Medications List Reviewed: Yes Assessment And Plan - Plan # Acute Kidney Injury on possible Chronic Kidney Disease Stage IV - Evaluation thus far: - Creatinine = 3.68 -> 4.01 -> 3.98 -> 4.01 -> 3.50 -> 2.93 - Urinalysis = fairly unremarkable - Renal ultrasound = "increased renal echotexture consistent with parenchymal disease. Kidneys appear mildly enlarged" - Management plan: - Nephrology consulted - recommendations appreciated - Plan for renal biopsy - Monitor creatinine and urine output - Renally dose medications - Avoid nephrotoxic agents # Question of Acute Appendicitis - Evaluation thus far: - CT abdomen/pelvis (04/23) = "borderline enlargement of the appendix is equivocal for an early appendicitis" - CT abdomen/pelvis (04/24) = "acute appendicitis is felt to be less likely. The appendix is mildly prominent however there is air within the lumen which would mitigate against acute inflammation. A limited non-contrast examination was performed as detailed." - Management plan: - General Surgery consulted and spoke with Dr. Whitfield - recommendations appreciated - Recommended non-operative management given low suspicion for acute appendicitis # Vitamin D Deficiency - [id number] D = 25.5 - Ordered cholecalciferol Santiago Feng M.D.
[2023-04-27] MEDS: ZOLPIDEM TARTRATE 10 MG TABLET PO PRN (21:55)
[2023-04-27 22:29] VITALS: BMI 32.6
[2023-04-28] MEDS: HEPARIN 5000 UNIT/ML 1 ML VIAL SQ SCH ×2 (00:34→09:06)
[2023-04-28] MEDS: NA CHLORIDE 0.9% 1,000 ML IV SCH (00:36)
[2023-04-28 03:40] LABS: Albumin 2.7 g/dL (3.4-5.0); Phosphorus 3.2 mg/dL (2.5-4.9); Potassium 3.6 mEq/L (3.5-5.1)
--- NOTE | 2023-04-28 05:13 | PN ---
Date of Progress Note: 04/27/2023 Chief Complaint: Acute kidney injury. Subjective: The patient was admitted to the hospital because of elevated BUN and creatinine. Serolo gy test is pending to screen for vasculitis. Renal function has improved somewhat over last 24 hours , although creatinine and BUN level remained elevated. GFR improved from 20 to 29. Review of Systems: Denies chest pain or palpitation. Physical Examination: Lungs: Clear to auscultation bilaterally. Heart: S1, S2. Abdomen: Soft. Extremities: No edema. Impression And Plan: 1.Acute kidney injury secondary to possible prerenal azotemia and acute tubular necrosis. The patie nt is on IV fluids for hydration. Continue hydration for acute kidney injury. The patient was to jaramillo ve renal biopsy, although due to the fact that renal function improved somewhat over last 24 hours, b iopsy was canceled. His mother would like to proceed with biopsy to evaluate for possible etiology o f renal dysfunction. 2.Volume depletion. Continue IV fluids and avoid nephrotoxic medication. 3.Hypercalcemia. Corrected calcium was within normal limits. 4.Acidosis. Monitor acid-base disorder. Currently, there is no evidence of metabolic acidosis. 5.Hypokalemia, resolved. 6.Secondary hyperparathyroidism. The patient may need evaluation for vitamin D deficiency. EB/MODL Voice ID: [id number] Report ID: [id number]
[2023-04-28 06:19] VITALS: TEMP 97.6
[2023-04-28 08:47] VITALS: BP 128/67
[2023-04-28] MEDS ORDERED: POTASSIUM CL SA 10 MEQ TAB PO ONE (09:00)
[2023-04-28] MEDS: PANTOPRAZOLE 40 MG INJ IVP SCH (09:07)
[2023-04-28] MEDS: SIMETHICONE 80 MG TAB PO PRN (09:07)
--- NOTE | 2023-04-28 10:52 | P.DS ---
Admission Date: 04/23/23 Discharge Date: 04/28/23 Disposition: ROUTINE DISCHARGE Discharge Condition: GOOD Reason for Admission: acute kidney injury Consultations: 1. Nephrology 2. General Surgery Hospital Course: DIAGNOSES: # Acute Kidney Injury on possible Chronic Kidney Disease Stage III # Asymptomatic Sinus Bradycardia # Vitamin D Deficiency HOSPITAL COURSE: Mr. Alex Ta is a 27 year old male with no reported past medical history who was admitted to the [facility] on 04/23/2023 for abdominal pain. He was admitted to the Medicine service. Upon further evaluation, his creatinine was elevated to 3.68. He had no prior history of renal disease. His renal ultrasound revealed, "increased renal echotexture consistent with parenchymal disease. Kidneys appear mildly enlarged." Nephrology was consulted and he was evaluated by Dr. Dubon. He felt that his acute kidney injury was secondary to pre-renal azotemia, so he was treated with IV hydration. Initially, his creatinine did not improve much and there was discussion of possible renal biopsy. However, over the last 24-48 hours, he has demonstrated improvement in his renal function as well as significant improvement in his symptoms. At this time, Dr. Dubon does not feel that a renal biopsy is warranted. He has cleared him for discharge with outpatient follow-up. He was advised not to take any NSAIDs. Additionally, his initial CT abdomen/pelvis revealed, "borderline enlargement of the appendix is equivocal for an early appendicitis." His pain resolved shortly after admission, and his repeat CT abdomen/pelvis revealed, "acute appendicitis is felt to be less likely. The appendix is mildly prominent however there is air within the lumen which would mitigate against acute inflammation. A limited non- contrast examination was performed as detailed." General Surgery was consulted and he was evaluated by Dr. Whitfield. He felt that surgery was not required and has cleared him for discharge from a Surgery standpoint. Of note, he was noted to have sinus bradycardia when he slept. He states that he was told he has a slow heart rate at baseline due to him being athletic. He reported that he exercises routinely. He denied having any symptoms regarding his bradycardia, specifically denying any chest pain, palpitations, dizziness, lightheadedness, syncope, shortness of breath, or any other symptoms. When he awoke, ambulated, or experienced any pain, his heart rate would appropriately increase, suggesting chronotropic competence. I reviewed his case with Dr. Doshi, who recommended outpatient follow-up. Mr. Ta was given these recommendations and agreed to make this follow-up appointment. On 04/28/2023, he was seen on morning rounds and deemed medically stable for discharge. He was discharged with instructions to schedule follow-up appointments with his PCP (Dr. Zuniga), with Cardiology (Dr. Doshi), and with Nephrology (Dr. Dubon). He was given the opportunity to ask questions and reported no further questions. Furthermore, all questions were answered to the best of my ability. A copy of this discharge summary will be sent to the above providers to facilitate continuity of care. Today, I personally spent 25 minutes on his case, of which greater than 50% of the time was spent in patient education, counseling, and coordination of care as described above. - Physical Exam General: Alert, In no apparent distress, Oriented x3 HEENT: Atraumatic, Mucous membr. moist/pink, Sclerae nonicteric Respiratory: Clear to auscultation bilaterally, Normal air movement Cardiovascular: No edema, Regular rate/rhythm, No murmurs Gastrointestinal: Normal bowel sounds, Soft and benign, Non-distended, No tenderness Musculoskeletal: No clubbing Integumentary: No rashes Neurological: Normal speech, Normal affect Vital Signs/Physical Exam: Temp Pulse Resp BP Pulse Ox 97.6 F 45 L 18 128/67 98 04/28/23 08:00 04/28/23 08:00 04/28/23 08:00 04/28/23 08:00 04/28/23 08:00 Laboratory Data at Discharge: WBC 6.90 thou/uL (4.3-10.9) 04/26/23 02:45 Hgb 14.3 g/dL (13.6-17.9) 04/26/23 02:45 Hct 40.8 % (39.6-49.0) 04/26/23 02:45 Plt Count 258 thou/uL (152-406) 04/26/23 02:45 PT 14.1 SECONDS (9.5-12.5) H 04/27/23 07:30 INR 1.28 04/27/23 07:30 APTT 35.8 SECONDS (24.3-36.9) 04/27/23 07:30 Sodium 138 mEq/L (136-145) 04/28/23 02:12 Potassium 3.6 mEq/L (3.5-5.1) 04/28/23 02:12 BUN 19 mg/dL (7-18) H 04/28/23 02:12 Creatinine 2.40 mg/dL (0.70-1.30) H 04/28/23 02:12 Glucose 90 mg/dL (74-106) 04/28/23 02:12 Uric Acid 7.3 mg/dL (3.5-7.2) H 04/26/23 02:45 Phosphorus 3.2 mg/dL (2.5-4.9) 04/28/23 02:12 Magnesium 2.1 mg/dL (1.6-2.4) 04/26/23 02:45 Total Bilirubin 0.5 mg/dL (0.2-1.0) 04/24/23 13:57 AST 20 U/L (15-37) 04/24/23 13:57 ALT 15 U/L (16-61) L 04/24/23 13:57 Alkaline Phosphatase 52 U/L (45-117) D 04/24/23 13:57 Lipase 22 U/L (13-75) 04/23/23 18:24 Home Medications: Zolpidem Tartrate [Ambien*] 10 mg PO BEDTIME PRN PRN 04/24/23 Cholecalciferol (Vitamin D3) [Vitamin D 1000 Iu Tab*] 1,000 unit PO DAILY tab 04/28/23 Physician Discharge Instructions: 1. Please call and schedule a follow-up appointment with your PCP (Dr. Zuniga) in 3-5 days - Your vitamin D level was low. Please start taking Vitamin D3 (1000 units) daily. Please have your PCP repeat your levels in 1 month 2. Please call and schedule a follow-up appointment with Nephrology (Dr. Dubon) in 3-5 days - Please have him follow-up on your autoimmune studies and repeat your kidney blood work 3. Please call and schedule a follow-up appointment with Cardiology (Dr. Doshi) in 3-5 days - Your heart rate runs on the slower side. Please discuss with Dr. Doshi at your follow-up appointment. Diet: Renal Activity: Ad fernando Followup: Jennifer Dubon MD [ACTIVE - CAN ADMIT] - (make follow up appointment in 2- 3weeks with chemistry .) Cleveland Zuniga MD [Primary Care Provider] - (make follow up appointment in 3-5 days .) Tor Doshi MD [ACTIVE - CAN ADMIT] - Time spent managing pt's care (in minutes): 25
--- NOTE | 2023-04-28 15:34 | PN ---
Date of Progress Note: 04/28/2023 Subjective: The patient was admitted to the hospital with acute kidney injury, possible secondary to prerenal. The patient had ingested Vicodin. The patient's kidney function did not improve original ly. After aggressive hydration, kidney function started being improving. Physical Examination: Vital Signs: Blood pressure 128/67, pulse of 45, afebrile. Chest: Clear to auscultation. Heart: S1, S2. Regular. Abdomen: Soft, nontender. Extremities: No edema. Neurologic: Alert. No focality. Laboratory Data: Hemoglobin 14.3. Sodium 138, potassium 3.6, bicarb 29, BUN 19, creatinine 2.4, GFR of 37, calcium of 7.8, phosphorus 3.2, albumin 2.7. Corrected calcium is 8.6. Current Medications: IV fluid, Ambien, ciprofloxacin, metronidazole. Assessment And Plan: 1.Acute kidney injury secondary to prerenal. Given the recovery, no activity in the urine, kidney f unction has been continued to improve, I am going to discontinue IV fluid. The patient cleared from the Renal standpoint for discharge planning. 2.Dehydration, heat exhaustion, recovered. The patient asymptomatic. Discontinue IV fluid. 3.Hypercalcemia secondary to dehydration, resolved. 4.Acidosis secondary to renal failure, resolved. 5.Hypokalemia, status post supplement, resolved. 6.Secondary hyperparathyroidism in the presence of acute kidney injury, on the recovery. We will co ntinue to monitor. 7.Gastroenteritis. Continue symptomatic treatment. The patient cleared from the Renal standpoint for discharge planning to follow up in the office in 2-3 weeks. JARVIS Voice ID: [id number] Report ID: [id number]
[2023-04-29] MEDS ORDERED: VITAMIN D 1000 UNIT TAB PO SCH (09:00)
[2023-04-30 16:23] LABS: Albumin, (SPE) 3.1 g/dL (3.8-4.8); Alpha-1-Globulins 0.4 g/dL (0.2-0.3); Alpha-2-Globulins 0.9 g/dL (0.5-0.9); INTERPRETATION REPORT
== END 2023-04-28 11:45 | disposition home or self-care (01) | DRG 683 ==
LOC: ER 18:03 → ERHOLD 19:44 → 2ND 04-24 06:07
PROVIDERS: ADMIT Hospitalist; ATTEND Internal Medicine
DX: N17.9 Acute kidney failure, unspecified (principal); E87.20 Acidosis, unspecified; E86.0 Dehydration; E87.6 Hypokalemia; K52.9 Noninfective gastroenteritis and colitis, unspecified; E21.1 Secondary hyperparathyroidism, not elsewhere classified; N18.30 Chronic kidney disease, stage 3 unspecified; E86.9 Volume depletion, unspecified; E55.9 Vitamin D deficiency, unspecified; T67.5XXA Heat exhaustion, unspecified, initial encounter; D72.829 Elevated white blood cell count, unspecified; Z20.822 Contact with and (suspected) exposure to COVID-19
CPT/HCPCS: 36415; 71045; 74176; 76770; 80048; 80053; 80069; 80074; 80307; 81001; 82306; 82550; 82570; 83690; 83735; 83880; 83935; 83970; 84100; 84132; 84145; 84156; 84165; 84300; 84550; 85025; 85610; 85730; 86021; 86038; 86160; 86225; 86430; 87389; 87804; 87811; 93005; 96365; 96375; 99285; C9113; J0744; J1644; J2405; J7030